=== PATIENT | female | born 1960 | race Caucasian/White ===

== ENCOUNTER → 2017-04-16 | Outpatient (CLI) | payer OTHER ==
--- NOTE | 2017-04-18 10:01 | MM ---
Reason for exam: screening (asymptomatic). Last mammogram was performed 1 year and 2 months ago. History: Patient is postmenopausal. Benign stereotactic core biopsy of the right breast, September 03, 1998. Core biopsy of the right breast. Took hormonal contraceptives beginning at age 43. Physical Findings: A clinical breast exam by your physician is recommended on an annual basis and results should be correlated with mammographic findings. MG Screening Mammo w CAD Bilateral CC and MLO view(s) were taken. Prior study comparison: February 14, 2016, bilateral MG screening mammo w CAD. January 07, 2015, bilateral MG screening mammo w CAD. There are scattered fibroglandular densities. Previous mammotome biopsy in the right breast. No significant changes when compared with prior studies. ASSESSMENT: Negative, BI-RAD 1 RECOMMENDATION: Routine screening mammogram of both breasts in 1 year.
== END ==
LOC: RADMAMWWP 15:01
PROVIDERS: ATTEND Obstetrics & Gynecology
DX: Z12.31 Encounter for screening mammogram for malignant neoplasm of breast (principal)

== ENCOUNTER → 2018-05-07 | Outpatient (CLI) | payer OTHER ==
--- NOTE | 2018-05-08 13:30 | MM ---
Reason for exam: screening (asymptomatic). Last mammogram was performed 1 year and 1 month ago. History: Patient is postmenopausal. Benign stereotactic core biopsy of the right breast, September 03, 1998. Core biopsy of the right breast. Took hormonal contraceptives beginning at age 43. Physical Findings: A clinical breast exam by your physician is recommended on an annual basis and results should be correlated with mammographic findings. MG Screening Mammo w CAD Bilateral CC and MLO view(s) were taken. Prior study comparison: April 16, 2017, bilateral MG screening mammo w CAD. February 14, 2016, bilateral MG screening mammo w CAD. There are scattered fibroglandular densities. No suspicious abnormality. Right biopsy marker noted. No significant changes when compared with prior studies. ASSESSMENT: Negative, BI-RAD 1 RECOMMENDATION: Routine screening mammogram of both breasts in 1 year.
== END | disposition home or self-care (01) ==
LOC: RADMAMWWP 14:38
PROVIDERS: ATTEND Obstetrics & Gynecology
DX: Z12.31 Encounter for screening mammogram for malignant neoplasm of breast (principal)
CPT/HCPCS: 77067

== ENCOUNTER → 2019-05-08 | Outpatient (CLI) | payer OTHER ==
--- NOTE | 2019-05-09 11:38 | MM ---
Reason for exam: screening (asymptomatic). Last mammogram was performed 1 year ago. History: Patient is postmenopausal. Benign stereotactic core biopsy of the right breast, September 03, 1998. Core biopsy of the right breast. Took hormonal contraceptives beginning at age 43. Physical Findings: A clinical breast exam by your physician is recommended on an annual basis and results should be correlated with mammographic findings. MG 3D Screening Mammo W/Cad Bilateral CC and MLO view(s) were taken. Prior study comparison: May 07, 2018, bilateral MG screening mammo w CAD. April 16, 2017, bilateral MG screening mammo w CAD. There are scattered fibroglandular densities. Previous mammotome biopsy in the left breast. No significant changes when compared with prior studies. ASSESSMENT: Benign, BI-RAD 2 RECOMMENDATION: Routine screening mammogram of both breasts in 1 year.
== END | disposition home or self-care (01) ==
LOC: RADMAMWWP 13:40
PROVIDERS: ATTEND Family Medicine
DX: Z12.31 Encounter for screening mammogram for malignant neoplasm of breast (principal)
CPT/HCPCS: 77063; 77067

== ENCOUNTER → 2020-05-19 | Outpatient (CLI) | payer BC ==
--- NOTE | 2020-05-24 11:34 | MM ---
Reason for exam: screening (asymptomatic). Last mammogram was performed 1 year ago. History: Patient is postmenopausal. Benign stereotactic core biopsy of the right breast, September 03, 1998. Core biopsy of the right breast. Took hormonal contraceptives beginning at age 43. Physical Findings: A clinical breast exam by your physician is recommended on an annual basis and results should be correlated with mammographic findings. MG Screening Mammo w CAD Bilateral CC and MLO view(s) were taken. Prior study comparison: May 08, 2019, bilateral MG 3d screening mammo w/cad. May 07, 2018, bilateral MG screening mammo w CAD. There are scattered fibroglandular densities. Previous mammotome biopsy in the right breast. No significant changes when compared with prior studies. ASSESSMENT: Benign, BI-RAD 2 RECOMMENDATION: Routine screening mammogram of both breasts in 1 year.
== END | disposition home or self-care (01) ==
LOC: RADMAMWWP 13:15
PROVIDERS: ATTEND Obstetrics & Gynecology
DX: Z12.31 Encounter for screening mammogram for malignant neoplasm of breast (principal)
CPT/HCPCS: 77067

== ENCOUNTER 2021-06-09 14:39 | Observation (INO) | payer BC ==
[2021-06-09] MEDS ORDERED: SODIUM CHLORIDE 0.9% 1,000 ML IV STA (15:26)
[2021-06-09] MEDS ORDERED: ONDANSETRON 4 MG/2 ML VIAL IVP STA ×2 (15:26→17:34)
[2021-06-09] MEDS ORDERED: MORPHINE SULFATE 4 MG/ML SYRINGE IV STA (15:26)
[2021-06-09 16:00] LABS: Basophils % (A) 0 %; Eosinophils % (A) 0 %; HCT 38.1 % (34.0-46.0); HGB 12.7 gm/dL (11.4-16.0); Lymphocytes # (A) 0.4 k/uL (1.0-4.8); Lymphocytes % (A) 2 %; MCH 30.6 pg (25.0-35.0); MCHC 33.4 g/dL (31.0-37.0); MCV 91.6 fL (80.0-100.0); Monocytes # (A) 0.3 k/uL (0-1.0); Monocytes % (A) 1 %; Neutrophils % (A) 97 %; Platelet Count 255 k/uL (150-450); RBC 4.16 m/uL (3.80-5.40); RDW 13.3 % (11.5-15.5); WBC 19.7 k/uL (3.8-10.6)
[2021-06-09 16:09] LABS: ALT 21 U/L (4-34); AST 33 U/L (14-36); African American GFR (CKD) >90 (>60 ml/min/1.73 sqM); Alkaline Phosphatase 72 U/L (38-126); Anion Gap 13 mmol/L; Blood Urea Nitrogen 16 mg/dL (7-17); Calcium 8.8 mg/dL (8.4-10.2); Carbon Dioxide 17 mmol/L (22-30); Chloride 106 mmol/L (98-107); Glucose 164 mg/dL (74-99); Lipase 57 U/L (23-300); Non-African American GFR(CKD) >90 (>60 ml/min/1.73 sqM); Sodium 136 mmol/L (137-145); Total Bilirubin 0.9 mg/dL (0.2-1.3); Total Protein 7.5 g/dL (6.3-8.2)
--- NOTE | 2021-06-09 16:55 | ED ---
Medical Decision Making - Medical Decision Making Patient care sign out to me by physician minister assistant, Chel Carter. Briefly, patient is 52-year-old femalepast medical history presents with multiple syncopal episodes today. She's been having infectious symptoms recently. Patient is covered vaccinated and boosted. She had approximately 4 sacral episodes today. Patient was evaluated at the bedside found to be stable medical condition. She denies any cardiac history. EKGs benign. Laboratory evaluation shows leukocytosis 19.7, neutrophils 1. Metabolic panel shows mild Acidosis with a bicarb of 17 and gap of 13. Rest of metabolic panel is negative. 4 panel viral PCR is negative for COVID-19, influenza and respiratory syncytial virus. Patient has a white count of 19.7. She does not have any obvious localizing symptoms. No previous labs to determine if patient's leukocytosis is chronic. Patient was reevaluated at bedside at 7:28 PM. Physical examination is benign. She has a benign abdomen with no palpatory tenderness, negative Kernig's, negative Brudzinski's, negative Lhermitte's, posterior oropharynx is u nremarkable, patient has no suprapubic pain or left lower quadrant abdominal pain. No rashes. States she does have a mild headache but denies any runny nose and nasal congestion. Urinalysis is unremarkable. Pending urine cultures, pending blood cultures. At this point is not entirely obvious sweats causing patient's leukocytosis or syncope. Patient does not have any palpatory lymphadenopathy. Disposition after discussed. Patient is agreeable with observation admission for further medical monitoring and repeat labs in the morning. Patient will be admitted to [facility]. - Lab Data Result diagrams: 06/09/21 15:53 06/09/21 15:53 Lab Results 06/09/21 06/09/21 06/09/21 Range/Units 15:53 15:53 15:53 WBC 19.7 H (3.8-10.6) k/uL RBC 4.16 (3.80-5.40) m/uL Hgb 12.7 (11.4-16.0) gm/dL Hct 38.1 (34.0-46.0) % MCV 91.6 (80.0-100.0) fL MCH 30.6 (25.0-35.0) pg MCHC 33.4 (31.0-37.0) g/dL RDW 13.3 (11.5-15.5) % Plt Count 255 (150-450) k/uL MPV 7.0 Neutrophils % 97 % Lymphocytes % 2 % Monocytes % 1 % Eosinophils % 0 % Basophils % 0 % Neutrophils # 19.0 H (1.3-7.7) k/uL Lymphocytes # 0.4 L (1.0-4.8) k/uL Monocytes # 0.3 (0-1.0) k/uL Eosinophils # 0.0 (0-0.7) k/uL Basophils # 0.0 (0-0.2) k/uL Sodium 136 L (137-145) mmol/L Potassium 4.0 (3.5-5.1) mmol/L Chloride 106 (98-107) mmol/L Carbon Dioxide 17 L (22-30) mmol/L Anion Gap 13 mmol/L BUN 16 (7-17) mg/dL Creatinine 0.54 (0.52-1.04) mg/dL Est GFR (CKD-EPI)AfAm >90 (>60 ml/min/1.73 sqM) Est GFR (CKD-EPI)NonAf >90 (>60 ml/min/1.73 sqM) Glucose 164 H (74-99) mg/dL Calcium 8.8 (8.4-10.2) mg/dL Total Bilirubin 0.9 (0.2-1.3) mg/dL AST 33 (14-36) U/L ALT 21 (4-34) U/L Alkaline Phosphatase 72 (38-126) U/L Troponin I <0.012 (0.000-0.034) ng/mL Total Protein 7.5 (6.3-8.2) g/dL Albumin 4.0 (3.5-5.0) g/dL Lipase 57 (23-300) U/L Urine Color Urine Appearance (Clear) Urine pH (5.0-8.0) Ur Specific [place] (1.001-1.035) Urine Protein (Negative) Urine Glucose (UA) (Negative) Urine Ketones (Negative) Urine Blood (Negative) Urine Nitrite (Negative) Urine Bilirubin (Negative) Urine Urobilinogen (<2.0) mg/dL Ur Leukocyte Esterase (Negative) Coronavirus (PCR) (Not Detectd) Influenza Type A RNA (Not Detectd) Influenza Type B (PCR) (Not Detectd) RSV (PCR) (Negative) 06/09/21 06/09/21 06/09/21 Range/Units 15:53 15:53 18:42 WBC (3.8-10.6) k/uL RBC (3.80-5.40) m/uL Hgb (11.4-16.0) gm/dL Hct (34.0-46.0) % MCV (80.0-100.0) fL MCH (25.0-35.0) pg MCHC (31.0-37.0) g/dL RDW (11.5-15.5) % Plt Count (150-450) k/uL MPV Neutrophils % % Lymphocytes % % Monocytes % % Eosinophils % % Basophils % % Neutrophils # (1.3-7.7) k/uL Lymphocytes # (1.0-4.8) k/uL Monocytes # (0-1.0) k/uL Eosinophils # (0-0.7) k/uL Basophils # (0-0.2) k/uL Sodium (137-145) mmol/L Potassium (3.5-5.1) mmol/L Chloride (98-107) mmol/L Carbon Dioxide (22-30) mmol/L Anion Gap mmol/L BUN (7-17) mg/dL Creatinine (0.52-1.04) mg/dL Est GFR (CKD-EPI)AfAm (>60 ml/min/1.73 sqM) Est GFR (CKD-EPI)NonAf (>60 ml/min/1.73 sqM) Glucose (74-99) mg/dL Calcium (8.4-10.2) mg/dL Total Bilirubin (0.2-1.3) mg/dL AST (14-36) U/L ALT (4-34) U/L Alkaline Phosphatase (38-126) U/L Troponin I (0.000-0.034) ng/mL Total Protein (6.3-8.2) g/dL Albumin (3.5-5.0) g/dL Lipase (23-300) U/L Urine Color Yellow Urine Appearance Clear (Clear) Urine pH 7.0 (5.0-8.0) Ur Specific [place] 1.022 (1.001-1.035) Urine Protein Trace H (Negative) Urine Glucose (UA) Negative (Negative) Urine Ketones Negative (Negative) Urine Blood Negative (Negative) Urine Nitrite Negative (Negative) Urine Bilirubin Negative (Negative) Urine Urobilinogen <2.0 (<2.0) mg/dL Ur Leukocyte Esterase Negative (Negative) Coronavirus (PCR) Not Detected (Not Detectd) Influenza Type A RNA Not Detected (Not Detectd) Influenza Type B (PCR) Not Detected (Not Detectd) RSV (PCR) Negative (Negative) Disposition Clinical Impression: Leukocytosis, Syncope Disposition: ADMITTED IP TO THIS HOSP Condition: Fair Referrals: Maxx Srivastava MD [Primary Care Provider] - 1-2 days
[2021-06-09] MEDS ORDERED: SODIUM CHLORIDE 0.9% 500 ML 500 ML IV STA (18:09)
[2021-06-09] MEDS ORDERED: ACETAMINOPHEN TAB 500 MG TAB PO STA (18:43)
[2021-06-09 18:53] LABS: Appearance,Urine Clear (Clear); Bilirubin,Urine Negative (Negative); Blood,Urine Negative (Negative); Color,Urine Yellow; Glucose,Urine (UA) Negative (Negative); Ketones,Urine Negative (Negative); Leukocyte Esterase,Urine Negative (Negative); Nitrite,Urine Negative (Negative); Protein,Urine Trace (Negative); Specific Gravity,Urine 1.022 (1.001-1.035); Urobilinogen,Urine <2.0 mg/dL (<2.0)
[2021-06-09] MEDS ORDERED: ONDANSETRON 4 MG/2 ML VIAL IVP PRN (19:26)
[2021-06-09] MEDS ORDERED: ACETAMINOPHEN TAB 325 MG TAB PO PRN (19:26)
[2021-06-09] MEDS ORDERED: NALOXONE 0.4 MG/ML 1 ML VIAL IV PRN (19:26)
--- NOTE | 2021-06-09 20:34 | CT ---
EXAMINATION TYPE: CT brain wo con CT DLP: 1055.4 mGycm, Automated exposure control for dose reduction was used. DATE OF EXAM: 06/09/2021 7:58 PM COMPARISON: None. CLINICAL INDICATION:Female, 60 years old with history of headache, syncope, passed out TECHNIQUE: Brain: Multiple axial CT images of the brain were obtained without IV contrast. FINDINGS: Brain: Extra-axial spaces: No abnormal extra-axial fluid collections. Ventricular system: Within normal limits Cerebral parenchyma: No acute intraparenchymal hemorrhage or mass effect. The henderson-white junction is well differentiated. Cerebellum: Unremarkable. Mass effect: No evidence of midline shift. Intracranial vasculature: Atherosclerotic calcifications of the intracranial vessels. Soft tissues: Normal. Calvarium/osseous structures: No depressed skull fracture. Paranasal sinuses and mastoid air cells: Clear. Visualized orbits: Orbital contents are intact. IMPRESSION: No acute intracranial process.
[2021-06-09] MEDS: SODIUM CHLORIDE 0.9% 1,000 ML IV SCH (22:07)
--- NOTE | 2021-06-09 23:27 | P.HPIM ---
History of Present Illness H&P Date: 06/09/21 The patient is a 60 yo F with no known PMH who presented to the emergency room due to syncope at home. The patient reports that she woke up at 4 AM this morning with sudden onset of nausea with 1 episode of vomiting and loose bowel movement. She then went back to bed and subsequently woke up again at 6 AM, at which time as she was walking to the restroom, she became lightheaded and lost consciousness, falling to the ground hitting her carpeted floor. The witnessed the episode, and noticed that she appeared to be stumbling and had lost consciousness for roughly 10 seconds, with no post ictal confusion, aching movements, urinary incontinence, or tongue biting. The patient subsequently had another episode of vomiting and then went back to sleep. She woke up again a few hours later and had another episode of vomiting and as she tried to get up off the bed, she again lost consciousness, roughly lasting for 10-15 seconds as per the . No post ictal confusion, shaking movements, or other seizure- like activity was noted in any of the episodes. The patient does not recall any prodrome of chest discomfort, shortness of breath, or palpitations. She reports a mild headache but denied fevers, chills, chest pain, cough. Denied abdominal pain, urinary complaints. Reports eating at home for dinner the night prior with no recent sick contacts or travel. Denied neck pain, visual disturbances, weakness, numbness, tingling. She underwent an extensive evaluation in the e mergency room with a CT brain without contrast unremarkable. EKG revealed normal sinus rhythm at [address]/T-wave changes noted as reviewed by me. Laboratory evaluation was remarkable for leukocytosis at 19.7, sodium 136, CO2 17, and glucose 164 with troponin less than 0.012. Review of systems: Pertinent positives and negatives as discussed in HPI, a complete review of systems was performed and all other systems are negative. Physical examination: General: non toxic, no distress, appears at stated age, normal weight Derm: no unusual rashes/lesions no unusual ecchymoses, warm, dry Head: atraumatic, normocephalic, symmetric Eyes: EOMI, no lid lag, anicteric sclera, pupils equal round reactive to light ENT: Nose and ears atraumatic, no thrush, no pharyngeal erythema Neck: No thyromegaly, no cervical lymphadenopathy, trachea midline, supple Mouth: no lip lesion, mucus membranes moist Cardiovascular: S1S2 reg, no murmur, positive posterior tibial pulse bilateral, no edema, capillary refill less than 2 seconds Lungs: CTA bilateral, no rhonchi, no rales , no accessory muscle use Abdominal: soft, nontender to palpation, no guarding, no appreciable organomegaly, normal bowel sounds Ext: no gross muscle atrophy, muscle strength 5 out of 5 in all 4 extremities grossly, no contractures, Neuro: CN II-XI grossly intact, light touch intact all 4 extremities, finger to nose within normal limits, Kernig's and Brudzinski's negative Psych: Alert, oriented, appropriate affect Assessment/plan Syncope, unclear etiology, suspected vasovagal in setting of vomiting and diarrhea -Orthostatics unremarkable -Continue with IV fluids -Cardiac monitoring -Fall precautions -Echocardiogram -Antiemetics Leukocytosis -No clear infectious etiology noted -Follow up blood cultures -Monitor CBC Hyper glycemia -Check A1c DVT prophylaxis -Heparin The patient is admitted with an anticipated less than 2 midnight stay for evaluation of syncope CODE STATUS: Full Code Discussed with: Patient Anticipated discharge date: in am Anticipated discharge place: Home Past Medical History Additional Past Medical History / Comment(s): Vertigo History of Any Multi-Drug Resistant Organisms: None Reported Past Surgical History: No Surgical Hx Reported Past Psychological History: No Psychological Hx Reported Smoking Status: Never smoker Past Alcohol Use History: Occasional Past Drug Use History: None Reported - Past Family History Father Family Medical History: Hyperlipidemia Medications and Allergies Home Medications Medication Instructions Recorded Confirmed Type Cholecalciferol [Vitamin D3 (25 25 mcg PO DAILY 06/09/21 06/09/21 History Mcg = 1000 Iu)] Meclizine [Antivert] 25 mg PO BID PRN 06/09/21 06/09/21 History Multivitamin/Iron/Folic Acid 1 tab PO DAILY 06/09/21 06/09/21 History [Centrum Women Tablet] Allergies Allergy/AdvReac Type Severity Reaction Status Date / Time amoxicillin Allergy Rash/Hives Verified 06/09/21 16:52 codeine AdvReac Confusion Verified 06/09/21 16:52 Physical Exam Vitals: Vital Signs Temp Pulse Pulse Pulse Pulse Resp BP 06/09/21 19:24 98.4 F 69 16 103/56 06/09/21 18:43 67 77 68 06/09/21 14:40 97.9 F 73 16 106/48 BP BP BP Pulse Ox 06/09/21 19:24 98 06/09/21 18:43 107/54 103/56 109/53 06/09/21 14:40 98 Intake and Output 06/09/21 06/09/21 06/09/21 06:59 14:59 22:59 Other: Weight 68.039 kg Results CBC & Chem 7: 06/09/21 15:53 06/09/21 15:53 Labs: Abnormal Lab Results - Last 24 Hours (Table) 06/09/21 06/09/21 06/09/21 Range/Units 15:53 15:53 18:42 WBC 19.7 H (3.8-10.6) k/uL Neutrophils # 19.0 H (1.3-7.7) k/uL Lymphocytes # 0.4 L (1.0-4.8) k/uL Sodium 136 L (137-145) mmol/L Carbon Dioxide 17 L (22-30) mmol/L Glucose 164 H (74-99) mg/dL Urine Protein Trace H (Negative)
[2021-06-10] MEDS: HEPARIN SODIUM,PORCINE/PF 5,000 UNIT/0.5 ML SYRINGE SQ SCH ×4 (03:22→20:30)
[2021-06-10] MEDS: SODIUM CHLORIDE 0.9% 1,000 ML IV SCH ×2 (08:50→20:24)
--- NOTE | 2021-06-10 11:00 | ECHOF ---
Referral Reason:syncope MEASUREMENTS -------- HEIGHT: 165.1 cm WEIGHT: 68.0 kg BP: 120/66 RVIDd: 2.6 cm (< 3.3) IVSd: 1.3 cm (0.6 - 1.1) LVIDd: 4.5 cm (3.9 - 5.3) LVPWd: 1.1 cm (0.6 - 1.1) IVSs: 1.8 cm LVIDs: 2.6 cm LVPWs: 1.8 cm LAESV Index (A-L): 39.83 ml/m Ao Diam: 3.2 cm (2.0 - 3.7) AV Cusp: 2.5 cm (1.5 - 2.6) LA Diam: 4.1 cm (2.7 - 3.8) MV EXCURSION: 26.991 mm (> 18.000) MV EF SLOPE: 101 mm/s (70 - 150) EPSS: 0.3 cm MV E Bk: 1.20 m/s MV DecT: 255 ms MV A Bk: 0.73 m/s MV E/A Ratio: 1.63 AR PHT: 621 ms RAP: 15.00 mmHg RVSP: 34.59 mmHg FINDINGS -------- Sinus rhythm. This was a technically adequate study. The left ventricular size is normal. There is mild concentric left ventricular hypertrophy. Overa ll left ventricular systolic function is normal with, an EF between 55 - 60 %. The diastolic fillin g pattern is normal for the age of the patient {E/E'}. The right ventricle is normal in size. LA is moderately dilated 34-39 ml/m2 The right atrial size is normal. Interatrial and interventricular septum intact. Trace amount of aortic regurgitation. There is no evidence of aortic stenosis. [id number] mitral regurgitation is present. Mild tricuspid regurgitation present. There is borderline pulmonary artery hypertension. The righ t ventricular systolic pressure, as measured by Doppler, is 34.59mmHg. There is no pulmonic regurgitation present. The aortic root size is normal. The inferior vena cava is dilated with poor inspiratory collapse which is consistent with estimated r ight atrial pressure of 20 mmHg. Echo free space represents a pericardial fat pad. There is no pericardial effusion. CONCLUSIONS -------- 1. The left ventricular size is normal. 2. There is mild concentric left ventricular hypertrophy. 3. Overall left ventricular systolic function is normal with, an EF between 55 - 60 %. 4. The diastolic filling pattern is normal for the age of the patient {E/E'} 5. LA is moderately dilated 34-39 ml/m2 6. Trace amount of aortic regurgitation. 7. [id number] mitral regurgitation is present. 8. Mild tricuspid regurgitation present. 9. There is borderline pulmonary artery hypertension. 10. The right ventricular systolic pressure, as measured by Doppler, is 34.59mmHg. 11. The inferior vena cava is dilated with poor inspiratory collapse which is consistent with estimat ed right atrial pressure of 20 mmHg. RIBBON CUTTER: Anabella Kidd RDCS
[2021-06-10 11:06] LABS: HGB 11.1 g/dL (12.0-15.0); MCH 30.2 pg (27.0-32.0); MCHC 32.6 g/dL (32.0-37.0); MCV 92.6 fL (80.0-97.0); Mean Platelet Volume 9.7 fL (9.5-12.2); Platelet Count 223 X 10*3/uL (140-440); RBC 3.67 X 10*6/uL (4.10-5.20); RDW 13.3 % (11.5-14.5); WBC 9.77 X 10*3/uL (4.50-10.00)
--- NOTE | 2021-06-10 11:13 | P.PN ---
Subjective Progress Note Date: 06/10/21 Patient feels okay better Syncope, unclear etiology, Since the patient did have 3 episodes of syncope we will consult cardiology we'll monitor overnight -Orthostatics unremarkable -Continue with IV fluids -Cardiac monitoring -Fall precautions -Echocardiogram -Antiemetics Leukocytosis -Exact etiology not clear but since the patient does have vomiting and diarrhea Will treat for gastroenteritis and will continue to observe We'll also check computed tomography scan of the lungs to rule out PE -Follow up blood cultures -Monitor CBC Constitutional: No acute distress, conversant, pleasant Eyes: Anicteric sclerae, moist conjunctiva, no lid-lag PERRLA ENMT: NC/AT Oropharynx clear, no erythema, exudates Neck: Supple, FROM, no masses, or JVD No carotid bruits No thyromegaly Lungs: Clear to auscultation Clear to percussion Normal respiratory effort, no accessory muscle use Cardiovascular: Heart regular in rate and rhythm, No murmurs, gallops, or rubs No peripheral edema Abdominal: Soft Nontender, no guarding, rebound or rigidity Abdomen moving with respiration Normoactive bowel sounds No hepatomegaly, No splenomegaly No palpable mass No abdominal wall hernia noted Skin: Normal temperature, tone, texture, turgor No induration No subcutaneous nodules No rash, lesions No ulcers Extremities: No digital cyanosis No clubbing Pedal pulses intact and symmetrical Radial pulses intact and symmetrical Normal gait and station No calf tenderness Psychiatric:Alert and oriented to person, place and time Appropriate affect Intact judgement Neuro: Muscles Strength 5/5 in all 4 extremities Sensation to light touch grossly present throughout Cranial nerves II-XII grossly intact No focal sensory deficits Objective - Vital Signs Vital signs: Vital Signs Temp 98.1 F 06/10/21 07:00 Pulse 61 06/10/21 07:00 Resp 15 06/10/21 07:00 BP 123/66 06/10/21 07:00 Pulse Ox 98 06/10/21 07:00 Intake & Output 06/09/21 06/10/21 06/10/21 18:59 06:59 18:59 Weight 68.039 kg 68.039 kg Other: Voiding Method Toilet Toilet # Voids 2 - Labs CBC & Chem 7: 06/10/21 07:28 06/09/21 15:53 Labs: Abnormal Lab Results - Last 24 Hours (Table) 06/09/21 06/09/21 06/09/21 Range/Units 15:53 15:53 18:42 WBC 19.7 H (3.8-10.6) k/uL RBC (4.10-5.20) X 10*6/uL Hgb (12.0-15.0) g/dL Hct (37.2-46.3) % Neutrophils # 19.0 H (1.3-7.7) k/uL Lymphocytes # 0.4 L (1.0-4.8) k/uL Sodium 136 L (137-145) mmol/L Carbon Dioxide 17 L (22-30) mmol/L Glucose 164 H (74-99) mg/dL Urine Protein Trace H (Negative) 06/10/21 Range/Units 07:28 WBC (3.8-10.6) k/uL RBC 3.67 L (4.10-5.20) X 10*6/uL Hgb 11.1 L (12.0-15.0) g/dL Hct 34.0 L (37.2-46.3) % Neutrophils # (1.3-7.7) k/uL Lymphocytes # (1.0-4.8) k/uL Sodium (137-145) mmol/L Carbon Dioxide (22-30) mmol/L Glucose (74-99) mg/dL Urine Protein (Negative)
[2021-06-10 11:15] LABS: African American GFR (CKD) 116.4 (60.0-200.0); Albumin/Globulin Ratio 1.54 (1.60-3.17); Anion Gap 11.6 mmol/L (10.00-18.00); Blood Urea Nitrogen 10.2 mg/dL (9.0-27.0); Calcium 8.8 mg/dL (8.7-10.3); Carbon Dioxide 23.4 mmol/L (20.0-27.5); Globulin 2.6 g/dL (1.6-3.3); Non-African American GFR(CKD) 100.5 (60.0-200.0); Potassium 3.9 mmol/L (3.5-5.5); Total Bilirubin 0.5 mg/dL (0.30-1.20); Total Protein 6.6 g/dL (6.2-8.2)
[2021-06-10] MEDS ORDERED: metroNIDAZOLE-NS PMX 500 MG in SALINE 1 100ML.BAG IVPB SCH (12:00)
[2021-06-10] MEDS ORDERED: LEVOFLOXACIN 500MG-D5W PMX 500 MG in DEXTROSE/WATER 1 100ML.BAG IVPB SCH (12:00)
--- NOTE | 2021-06-10 13:00 | P.CRDCN ---
History of Present Illness Consult date: 06/10/21 History of present illness: HISTORY OF PRESENT ILLNESS: This is a 60-year-old female with a past medical history significant for vertigo. 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 She did have a stress echocardiogram in 2013 which was negative for ischemia. We have been asked to see the patient in consultation for syncope. Patient examined at the bedside. Patient states yesterday she was feeling un well and was having multiple episodes of vomiting. Patient states she walked to the bathroom and had an episode of vomiting and upon walking back she had a syncopal episode. She states her witnessed this. She denies having any injuries. She states that she walked back to bed and laid back down. She states that she then sat on the side of the bed and thought she was going to get sick and had another syncopal episode. She was found to have leukocytosis on admission with a WBC of 19. The patient has not had any further episodes of syncope since coming to the hospital. She is feeling much better today and has not had any further episodes of nausea or vomiting. She is receiving IV fluids. EKG reveals sinus mechanism with no signs of acute ischemia Laboratory data: WBC 19.7. Repeat 9.77. Hemoglobin 11.1. Platelet count 223. Sodium 142. Potassium 3.9. BUN 10. Creatinine 0.6. Troponin negative 3. Current home cardiac medications include none Echo cardiac room completed revealing ejection fraction 55-60%, trace amount of aortic regurgitation, [id number] mitral regurgitation, mild tricuspid regurgitation, and borderline pulmonary artery hypertension REVIEW OF SYSTEMS: At the time of my exam: CONSTITUTIONAL: Denies fever or chills. HEENT: Denies blurred vision, vision changes, or eye pain. Denies hemoptysis CARDIOVASCULAR: Denies chest pain. Denies orthopnea. Denies PND. Denies palpitations RESPIRATORY: Denies shortness of breath. GASTROINTESTINAL: Denies abdominal pain. Denies nausea or vomiting. HEMATOLOGIC: Denies bleeding disorders. GENITOURINARY: Denies any blood in urine. SKIN: Denies pruitis. Denies rash. PHYSICAL EXAM: VITAL SIGNS: Reviewed. GENERAL: Well-developed in no acute distress. HEENT: Head is normocephalic. Pupils are equal, round. Sclerae anicteric. Mucous membranes of the mouth are moist. Neck supple. No JVD or thyromegaly LUNGS: Respirations even and unlabored. Lungs essentially clear to auscultation bilaterally. HEART: Regular rate and rhythm. S1 and S2 heard. ABDOMEN: Soft. Nondistended. Nontender. EXTREMITIES: Normal range of motion. No clubbing or cyanosis. Peripheral pulses intact. No lower extremity edema NEUROLOGIC: Awake and alert. Oriented x 3. ASSESSMENT: Vasovagal syncope Nausea and vomiting Diarrhea Leukocytosis Vertigo PLAN: 2D echo obtained and reviewed Patients syncope likely related to vasovagal episode No further cardiac workup at this time We will sign off. Please reconsult if needed Nurse practitioner note has been reviewed by physician. Signing provider agrees with the documented findings, assessment, and plan of care. Past Medical History Additional Past Medical History / Comment(s): Vertigo History of Any Multi-Drug Resistant Organisms: None Reported Past Surgical History: No Surgical Hx Reported Past Psychological History: No Psychological Hx Reported Smoking Status: Never smoker Past Alcohol Use History: Occasional Past Drug Use History: None Reported - Past Family History Father Family Medical History: Hyperlipidemia Medications and Allergies Home Medications Medication Instructions Recorded Confirmed Type Cholecalciferol [Vitamin D3 (25 25 mcg PO DAILY 06/09/21 06/09/21 History Mcg = 1000 Iu)] Meclizine [Antivert] 25 mg PO BID PRN 06/09/21 06/09/21 History Multivitamin/Iron/Folic Acid 1 tab PO DAILY 06/09/21 06/09/21 History [Centrum Women Tablet] Allergies Allergy/AdvReac Type Severity Reaction Status Date / Time amoxicillin Allergy Rash/Hives Verified 06/09/21 16:52 codeine AdvReac Confusion Verified 06/09/21 16:52 Physical Exam Vitals: Vital Signs Temp Pulse Pulse Pulse Pulse Pulse Resp 06/10/21 07:00 98.1 F 61 15 06/10/21 03:32 98.0 F 61 14 06/09/21 22:40 98.1 F 60 16 06/09/21 19:24 98.4 F 69 16 06/09/21 18:43 67 77 68 06/09/21 14:40 97.9 F 73 16 BP BP BP BP BP Pulse Ox 06/10/21 07:00 123/66 98 06/10/21 03:32 120/66 100 06/09/21 22:40 104/58 98 06/09/21 19:24 103/56 98 06/09/21 18:43 107/54 103/56 109/53 06/09/21 14:40 106/48 98 Intake and Output 06/09/21 06/10/21 06/10/21 22:59 06:59 14:59 Other: Voiding Method Toilet Toilet # Voids 1 2 Weight 68.039 kg Results 06/10/21 07:28 06/10/21 07:28 Cardiac Enzymes 06/09/21 06/09/21 06/10/21 Range/Units 15:53 15:53 07:28 AST 33 19 (14-36) U/L Troponin I <0.012 (0.000-0.034) ng/mL CBC 06/09/21 06/10/21 Range/Units 15:53 07:28 WBC 19.7 H 9.77 (3.8-10.6) k/uL RBC 4.16 3.67 L (3.80-5.40) m/uL Hgb 12.7 11.1 L (11.4-16.0) gm/dL Hct 38.1 34.0 L (34.0-46.0) % Plt Count 255 223 (150-450) k/uL Comprehensive Metabolic Panel 06/09/21 06/10/21 Range/Units 15:53 07:28 Sodium 136 L 142 (137-145) mmol/L Potassium 4.0 3.9 (3.5-5.1) mmol/L Chloride 106 107 (98-107) mmol/L Carbon Dioxide 17 L 23.4 (22-30) mmol/L BUN 16 10.2 (7-17) mg/dL Creatinine 0.54 0.6 (0.52-1.04) mg/dL Glucose 164 H 90 (74-99) mg/dL Calcium 8.8 8.8 (8.4-10.2) mg/dL AST 33 19 (14-36) U/L ALT 21 17 (4-34) U/L Alkaline Phosphatase 72 71 (38-126) U/L Total Protein 7.5 6.6 (6.3-8.2) g/dL Albumin 4.0 4.0 (3.5-5.0) g/dL Current Medications Generic Name Dose Route Start Last Admin Trade Name Freq PRN Reason Stop Dose Admin Acetaminophen 650 mg 06/09/21 19:26 Acetaminophen Tab 325 Mg Tab PO Q6HR PRN Mild Pain or Fever > 100.5 Heparin Sodium (Porcine) 5,000 unit 06/10/21 00:00 06/10/21 08:50 Heparin Sodium,Porcine/Pf 5,000 Unit/0.5 Ml Syringe SQ 5,000 unit Q8HR PRAVEEN Administration Sodium Chloride 1,000 mls @ 75 mls/hr 06/09/21 19:30 06/10/21 08:50 Saline 0.9% IV 75 mls/hr .[id number] PRAVEEN Administration Levofloxacin 500 mg/ IV 100 mls @ 100 mls/hr 06/10/21 12:00 Solution IVPB Q24H PRAVEEN Metronidazole 500 mg/ IV 100 mls @ 100 mls/hr 06/10/21 12:00 Solution IVPB Q8H PRAVEEN Naloxone HCl 0.2 mg 06/09/21 19:26 Naloxone 0.4 Mg/Ml 1 Ml Vial IV Q2M PRN Opioid Reversal Ondansetron HCl 4 mg 06/09/21 19:26 Ondansetron 4 Mg/2 Ml Vial IVP Q8HR PRN Nausea And Vomiting Intake and Output 06/09/21 06/10/21 06/10/21 22:59 06:59 14:59 Other: Voiding Method Toilet Toilet # Voids 1 2 Weight 68.039 kg 06/10/21 07:28 06/10/21 07:28
--- NOTE | 2021-06-10 14:40 | CT ---
EXAMINATION TYPE: CT chest angio for PE DATE OF EXAM: 06/10/2021 COMPARISON: NONE HISTORY: Syncope and weakness. CT DLP: 441 mGycm. Automated Exposure Control for Dose Reduction was Utilized. CONTRAST: CTA scan of the thorax is performed with IV Contrast, patient injected with 100 mL of Isovue 370, pul monary embolism protocol. MIP Images are created on CT scanner and reviewed. FINDINGS: LUNGS: Mild bibasilar linear scarring and/or atelectasis. No suspicious focal consolidation. There is no pleural effusion or pneumothorax seen bilaterally. The tracheobronchial tree is patent. MEDIASTINUM: There is suboptimal bolus but there is no convincing CT evidence for acute pulmonary emb olism. Equal contrast in the aorta is identified without aneurysm or dissection. Bovine type arch is seen which is normal variant. There are no greater than 1 cm hilar or mediastinal lymph nodes. No c ardiomegaly or pericardial effusion is seen. Somewhat small thyroid gland. OTHER: Benign 2.0 cm thin-walled cyst in the left hepatic lobe anteriorly on axial image 140. IMPRESSION: Suboptimal study without acute pulmonary embolism. No suspicious acute pulmonary process.
[2021-06-11] MEDS: HEPARIN SODIUM,PORCINE/PF 5,000 UNIT/0.5 ML SYRINGE SQ SCH (07:55)
[2021-06-11 08:15] VITALS: BP 119/68; PULSE 60; RESP 17; TEMP 98
--- NOTE | 2021-06-11 08:55 | P.DS ---
Providers Date of admission: 06/09/21 19:26 Expected date of discharge: 06/11/21 Attending physician: Pablito Canales MD Primary care physician: Maxx Alvarez [facility] Course: 60-year-old female admitted to the hospital with nausea vomiting and diarrhea and syncopal episode which was thought due to vasovagal cardiogenic as been consulted no further test is needed and patient feels okay today wants to go home tolerating diet no chest pain no shortness of breath Constitutional: No acute distress, conversant, pleasant Eyes: Anicteric sclerae, moist conjunctiva, no lid-lag PERRLA ENMT: NC/AT Oropharynx clear, no erythema, exudates Neck: Supple, FROM, no masses, or JVD No carotid bruits No thyromegaly Lungs: Clear to auscultation Clear to percussion Normal respiratory effort, no accessory muscle use Cardiovascular: Heart regular in rate and rhythm, No murmurs, gallops, or rubs No peripheral edema Abdominal: Soft Nontender, no guarding, rebound or rigidity Abdomen moving with respiration Normoactive bowel sounds No hepatomegaly, No splenomegaly No palpable mass No abdominal wall hernia noted Skin: Normal temperature, tone, texture, turgor No induration No subcutaneous nodules No rash, lesions No ulcers Extremities: No digital cyanosis No clubbing Pedal pulses intact and symmetrical Radial pulses intact and symmetrical Normal gait and station No calf tenderness Psychiatric:Alert and oriented to person, place and time Appropriate affect Intact judgement Neuro: Muscles Strength 5/5 in all 4 extremities Sensation to light touch grossly present throughout Cranial nerves II-XII grossly intact No focal sensory deficits Discharge plan Gastroenteritis clinically resolved Syncopal episode likely vasovagal cardiology cleared the patient to be discharged home to follow-up with primary care physician Patient Condition at Discharge: Fair Plan - Discharge Summary Discharge Rx Participant: No New Discharge Prescriptions: No Action Multivitamin/Iron/Folic Acid [Centrum Women Tablet] 1 tab PO DAILY Meclizine [Antivert] 25 mg PO BID PRN PRN Reason: Vertigo Cholecalciferol [Vitamin D3 (25 Mcg = 1000 Iu)] 25 mcg PO DAILY Discharge Medication List Cholecalciferol [Vitamin D3 (25 Mcg = 1000 Iu)] 25 mcg PO DAILY 06/09/21 [History] Meclizine [Antivert] 25 mg PO BID PRN 06/09/21 [History] Multivitamin/Iron/Folic Acid [Centrum Women Tablet] 1 tab PO DAILY 06/09/21 [History] Follow up Appointment(s)/Referral(s): Maxx Srivastava MD [Primary Care Provider] - 1-2 days Discharge Disposition: HOME SELF-CARE
[2021-06-11 11:38] LABS: Basophils # (A) 0.02 X 10*3/uL (0.00-0.10); Basophils % (A) 0.4 %; Eosinophils # (A) 0.07 X 10*3/uL (0.04-0.35); Eosinophils % (A) 1.3 %; HCT 33.5 % (37.2-46.3); HGB 10.7 g/dL (12.0-15.0); Lymphocytes # (A) 1.32 X 10*3/uL (0.90-5.00); MCH 30.1 pg (27.0-32.0); MCHC 31.9 g/dL (32.0-37.0); MCV 94.1 fL (80.0-97.0); Mean Platelet Volume 9.8 fL (9.5-12.2); Monocytes # (A) 0.42 X 10*3/uL (0.20-1.00); Neutrophils # (A) 3.42 X 10*3/uL (1.80-7.70); Neutrophils % (A) 64.9 %; Platelet Count 193 X 10*3/uL (140-440); RBC 3.56 X 10*6/uL (4.10-5.20); RDW 13.4 % (11.5-14.5); WBC 5.27 X 10*3/uL (4.50-10.00)
[2021-06-11 12:18] LABS: African American GFR (CKD) 116.4 (60.0-200.0); Albumin 3.8 g/dL (3.8-4.9); Albumin/Globulin Ratio 1.46 (1.60-3.17); Anion Gap 10.9 mmol/L (10.00-18.00); BUN/Creat Ratio 13.83 Ratio (12.00-20.00); Blood Urea Nitrogen 8.3 mg/dL (9.0-27.0); Calcium 8.8 mg/dL (8.7-10.3); Carbon Dioxide 23.1 mmol/L (20.0-27.5); Globulin 2.6 g/dL (1.6-3.3); Non-African American GFR(CKD) 100.5 (60.0-200.0); Potassium 3.9 mmol/L (3.5-5.5); Total Bilirubin 0.4 mg/dL (0.30-1.20); Total Protein 6.4 g/dL (6.2-8.2)
== END 2021-06-11 10:00 | disposition home or self-care (01) ==
LOC: EC 14:39 → UNDOADMIN 19:26 → 6NMEDSUR 19:26
PROVIDERS: ADMIT Internal Medicine; ATTEND Internal Medicine
DX: K52.9 Noninfective gastroenteritis and colitis, unspecified (principal); R55 Syncope and collapse; I08.1 Rheumatic disorders of both mitral and tricuspid valves; R51.9 Headache, unspecified; Z88.0 Allergy status to penicillin; Z88.5 Allergy status to narcotic agent; Z83.42 Family history of familial hypercholesterolemia
CPT/HCPCS: 99285; 96376; 96361 ×3; 96374; 96375; 96372 ×2; 36415; 93005; 93306; 80053 ×3; 83690; 84484; 85025 ×2; 85027; 81003; 87040; 87502; 83036; 87634; 87635; 70450; 71275; G0378 ×3; J2270; J2405; Q9967; J1644 ×2

== ENCOUNTER → 2021-06-17 | Outpatient (CLI) | payer BC ==
--- NOTE | 2021-06-20 11:11 | MM ---
Reason for exam: screening (asymptomatic). Last mammogram was performed 1 year and 1 month ago. History: Patient is postmenopausal. Benign stereotactic core biopsy of the right breast, September 03, 1998. Core biopsy of the right breast. Took hormonal contraceptives beginning at age 43. Physical Findings: A clinical breast exam by your physician is recommended on an annual basis and results should be correlated with mammographic findings. MG 3D Screening Mammo W/Cad Bilateral CC and MLO view(s) were taken. Prior study comparison: May 19, 2020, bilateral MG screening mammo w CAD. May 08, 2019, bilateral MG 3d screening mammo w/cad. There are scattered fibroglandular densities. Previous mammotome biopsy in the right breast. No significant changes when compared with prior studies. ASSESSMENT: Negative, BI-RAD 1 RECOMMENDATION: Routine screening mammogram of both breasts in 1 year.
== END | disposition home or self-care (01) ==
LOC: RADMAMWWP 13:40
PROVIDERS: ATTEND Obstetrics & Gynecology
DX: Z12.31 Encounter for screening mammogram for malignant neoplasm of breast (principal)
CPT/HCPCS: 77063; 77067

== ENCOUNTER 2022-04-18 08:02 | Emergency (ER) | payer BC ==
[2022-04-18 08:10] VITALS: RESP 18; TEMP 98.8
[2022-04-18] MEDS ORDERED: SODIUM CHLORIDE 0.9% 1,000 ML IV STA (08:37)
[2022-04-18] MEDS ORDERED: ONDANSETRON 4 MG/2 ML VIAL IVP STA (08:37)
[2022-04-18 08:47] VITALS: BP 101/54; PULSE 78
[2022-04-18 09:05] LABS: Basophils % (A) 0 %; Eosinophils # (A) 0.2 k/uL (0-0.7); Eosinophils % (A) 1 %; HCT 35.4 % (34.0-46.0); HGB 12.5 gm/dL (11.4-16.0); Lymphocytes # (A) 0.5 k/uL (1.0-4.8); Lymphocytes % (A) 3 %; MCH 31.1 pg (25.0-35.0); MCHC 35.3 g/dL (31.0-37.0); MCV 88.1 fL (80.0-100.0); Mean Platelet Volume 7.3; Monocytes # (A) 0.3 k/uL (0-1.0); Monocytes % (A) 2 %; Neutrophils # (A) 16.4 k/uL (1.3-7.7); Neutrophils % (A) 94 %; Platelet Count 269 k/uL (150-450); RBC 4.02 m/uL (3.80-5.40); RDW 12.8 % (11.5-15.5); WBC 17.4 k/uL (3.8-10.6)
[2022-04-18 09:28] LABS: ALT 16 U/L (4-34); AST 30 U/L (14-36); African American GFR (CKD) >90 (>60 ml/min/1.73 sqM); Albumin 3.5 g/dL (3.5-5.0); Alkaline Phosphatase 55 U/L (38-126); Amylase 60 U/L (30-110); Anion Gap 6 mmol/L; Blood Urea Nitrogen 12 mg/dL (7-17); Calcium 7.4 mg/dL (8.4-10.2); Carbon Dioxide 22 mmol/L (22-30); Chloride 111 mmol/L (98-107); Glucose 117 mg/dL (74-99); Lipase 61 U/L (23-300); Non-African American GFR(CKD) >90 (>60 ml/min/1.73 sqM); Sodium 139 mmol/L (137-145); Total Bilirubin 0.6 mg/dL (0.2-1.3); Total Protein 6.4 g/dL (6.3-8.2)
[2022-04-18 09:29] LABS: Potassium 3.8 mmol/L (3.5-5.1)
--- NOTE | 2022-04-18 10:13 | ED ---
General Adult HPI - General Chief complaint: Nausea/Vomiting/Diarrhea Stated complaint: nausea, vomiting Time Seen by Provider: 04/18/22 08:05 Source: patient, EMS, RN notes reviewed, old records reviewed Mode of arrival: EMS Limitations: no limitations - History of Present Illness Initial comments: This is a 61-year-old female presents emergency Department complaining that she became ill nauseous this morning and vomited once. Patient states after she vomited she didn't pass out for a few seconds. According to the this happen once before in May and they never found a reason they diagnosed her with vasovagal syncope. Patient denies any chest pain difficulty breathing shortest breath per patient denies any fever chills or cough per patient denies any diarrhea per patient denies any abdominal pain patient denies any back pain. Patient denies dysuria hematuria urinary frequency. - Related Data Home Medications Medication Instructions Recorded Confirmed Cholecalciferol [Vitamin D3 (25 25 mcg PO DAILY 06/09/21 04/18/22 Mcg = 1000 Iu)] Meclizine [Antivert] 25 mg PO BID PRN 06/09/21 04/18/22 Multivitamin/Iron/Folic Acid 1 tab PO DAILY 06/09/21 04/18/22 [Centrum Women Tablet] Allergies Allergy/AdvReac Type Severity Reaction Status Date / Time amoxicillin Allergy Rash/Hives Verified 06/09/21 16:52 codeine AdvReac Confusion Verified 06/09/21 16:52 Review of Systems ROS Statement: Those systems with pertinent positive or pertinent negative responses have been documented in the HPI. ROS Other: All systems not noted in ROS Statement are negative. Past Medical History Additional Past Medical History / Comment(s): Vertigo History of Any Multi-Drug Resistant Organisms: None Reported Past Surgical History: No Surgical Hx Reported Past Psychological History: No Psychological Hx Reported Smoking Status: Never smoker Past Alcohol Use History: Occasional Past Drug Use History: None Reported - Past Family History Father Family Medical History: Hyperlipidemia General Exam - General Exam Comments Initial Comments: GENERAL: Patient is well-developed and well-nourished. Patient is nontoxic and well- hydrated and is in mild distress. ENT: Neck is soft and supple. No significant lymphadenopathy is noted. Oropharynx is clear. Moist mucous membranes. Neck has full range of motion without eliciting any pain. EYES: The sclera were anicteric and conjunctiva were pink and moist. Extraocular movements were intact and pupils were equal round and reactive to light. Eyelids were unremarkable. PULMONARY: Unlabored respirations. Good breath sounds bilaterally. No audible rales rhonchi or wheezing was noted. CARDIOVASCULAR: There is a regular rate and rhythm without any murmurs gallops or rubs. ABDOMEN: Soft and nontender with normal bowel sounds. SKIN: Skin is clear with no lesions or rashes and otherwise unremarkable. NEUROLOGIC: Patient is alert and oriented x3. Cranial nerves II through XII are grossly intact. Motor and sensory are also intact. Normal speech, volume and content. Symmetrical smile. MUSCULOSKELETAL: Normal extremities with adequate strength and full range of motion. No lower extremity swelling or edema. No calf tenderness. LYMPHATICS: No significant lymphadenopathy is noted PSYCHIATRIC: Normal psychiatric evaluation. Limitations: no limitations Course Vital Signs 04/18/22 04/18/22 08:03 08:39 Temperature 98.8 F 98.8 F Pulse Rate 75 Pulse Rate [ 78 Right Radial] Respiratory 18 18 Rate Blood Pressure 101/58 Blood Pressure 100/51 [Right Arm Sitting] Blood Pressure 90/51 [Right Arm Standing] Blood Pressure 101/54 [Right Arm Supine] O2 Sat by Pulse 96 Oximetry Medical Decision Making - Medical Decision Making I interpret EKG EKG shows sinus rhythm at 81 bpm NC interval 152 QRS is 108 QT interval 382 QTC is 419. Patient's EKG shows no ST segment elevation or depression. I went back to reevaluate the patient and the patient felt much better she Was able to get up and ambulate without problem and had no complaints at this time. Patient stated she had no complaints of any dysuria hematuria cough sore throat or ear pain. I asked these questions because her white count was mildly elevated but she had no signs of any infection. - Lab Data Result diagrams: 04/18/22 08:54 04/18/22 08:54 Lab Results 04/18/22 04/18/22 Range/Units 08:54 08:54 WBC 17.4 H (3.8-10.6) k/uL RBC 4.02 (3.80-5.40) m/uL Hgb 12.5 (11.4-16.0) gm/dL Hct 35.4 (34.0-46.0) % MCV 88.1 (80.0-100.0) fL MCH 31.1 (25.0-35.0) pg MCHC 35.3 (31.0-37.0) g/dL RDW 12.8 (11.5-15.5) % Plt Count 269 (150-450) k/uL MPV 7.3 Neutrophils % 94 % Lymphocytes % 3 % Monocytes % 2 % Eosinophils % 1 % Basophils % 0 % Neutrophils # 16.4 H (1.3-7.7) k/uL Lymphocytes # 0.5 L (1.0-4.8) k/uL Monocytes # 0.3 (0-1.0) k/uL Eosinophils # 0.2 (0-0.7) k/uL Basophils # 0.0 (0-0.2) k/uL Sodium 139 (137-145) mmol/L Potassium 3.8 (3.5-5.1) mmol/L Chloride 111 H (98-107) mmol/L Carbon Dioxide 22 (22-30) mmol/L Anion Gap 6 mmol/L BUN 12 (7-17) mg/dL Creatinine 0.47 L (0.52-1.04) mg/dL Est GFR (CKD-EPI)AfAm >90 (>60 ml/min/1.73 sqM) Est GFR (CKD-EPI)NonAf >90 (>60 ml/min/1.73 sqM) Glucose 117 H (74-99) mg/dL Calcium 7.4 L (8.4-10.2) mg/dL Total Bilirubin 0.6 (0.2-1.3) mg/dL AST 30 (14-36) U/L ALT 16 (4-34) U/L Alkaline Phosphatase 55 (38-126) U/L Total Protein 6.4 (6.3-8.2) g/dL Albumin 3.5 (3.5-5.0) g/dL Amylase 60 (30-110) U/L Lipase 61 (23-300) U/L Disposition Clinical Impression: Vasovagal episode, Nausea & vomiting Disposition: HOME SELF-CARE Condition: Good Instructions (If sedation given, give patient instructions): Acute Nausea and Vomiting (ED), Hypotension (ED) Additional Instructions: Patient is given be given Zofran medications to go home with. Is patient prescribed a controlled substance at d/c from ED?: No Referrals: Maxx Srivastava MD [Primary Care Provider] - 1-2 days Time of Disposition: 10:30
[2022-04-18] MEDS ORDERED: ONDANSETRON 4 MG ODT STARTER PACK 2 TAB BTL PO STA (11:10)
== END 2022-04-18 11:22 | disposition home or self-care (01) ==
LOC: EC 08:02
DX: R55 Syncope and collapse (principal); R11.2 Nausea with vomiting, unspecified; Z88.1 Allergy status to other antibiotic agents; Z88.5 Allergy status to narcotic agent
CPT/HCPCS: 36415; 93005; 80053; 82150; 83690; 84484; 85025; 99284; 96374; 96361; J2405; S0119

== ENCOUNTER → 2022-05-17 | Outpatient (CLI) | payer BC ==
--- NOTE | 2022-05-17 11:46 | US ---
EXAMINATION TYPE: US carotid duplex BILAT DATE OF EXAM: 05/17/2022 COMPARISON: NONE CLINICAL HISTORY: R55 SYNCOPE AND COLLAPSE. TECHNIQUE: Carotid duplex ultrasound examination. Indirect Doppler criteria was utilized. FINDINGS: EXAM MEASUREMENTS: RIGHT: Peak Systolic Velocity (PSV) cm/sec ----- Right CCA: 106 ----- Right ICA: 106 ----- Right ECA: 93.4 ICA/CCA ratio: 1.0 RIGHT: End Diastole cm/sec ----- Right CCA: 27.9 ----- Right ICA: 30.9 ----- Right ECA: 19.5 LEFT: Peak Systolic Velocity (PSV) cm/sec ----- Left CCA: 100 ----- Left ICA: 102 ----- Left ECA: 78.1 ICA/CCA ratio: 1.0 LEFT: End Diastole cm/sec ----- Left CCA: 36.1 ----- Left ICA: 44.3 ----- Left ECA: 18.9 VERTEBRALS (direction of flow): Right Vertebral: Antegrade Left Vertebral: Antegrade [employer]OWS [employer] DEVELOPER NOTES: No significant stenosis seen IMPRESSION: Less than 50% stenosis of the bilateral carotid bifurcations. Criteria for Assigning % of Stenosis / Diameter reduction (Estimation based on the indirect measurements of the internal carotid artery velocities (ICA PSV). 1. Normal (no stenosis)=ICA PSV < 125 cm/s: ratio < 2.0: ICA EDV<40 cm/s. 2. Less than 50% stenosis=ICA PSV < 125 cm/s: ratio < 2.0: ICA EDV<40 cm/s. 3. 50 to 69% stenosis=ICA PSV of 125 to 230 cm/s: ration 2.0 ? 4.0: ICA EDV 40-100 cm/s. 4. Greater than 70% stenosis to near occlusion= ICA PSV > 230 cm/s: ratio > 4.0: ICA EDV > 100 cm/s. 5. Near occlusion= ICA PSV velocities may be low or undetectable: variable ratio and ICA EDV. 6. Total occlusion=unable to detect flow.
== END | disposition home or self-care (01) ==
LOC: RADUSWWP 10:46
PROVIDERS: ATTEND Family Medicine
DX: I65.23 Occlusion and stenosis of bilateral carotid arteries (principal)
CPT/HCPCS: 93880

== ENCOUNTER → 2022-06-20 | Outpatient (CLI) | payer BC ==
--- NOTE | 2022-06-20 14:14 | BD ---
EXAMINATION TYPE: Axial Bone Density DATE OF EXAM: 06/20/2022 COMPARISON: NONE CLINICAL HISTORY: 61 years old Female. ICD-10 CODE: Z78.[address] Height: 64 Weight: 162 FRAX RISK QUESTIONS: Family History (Parent hip fracture): YES MOTHER 93 History of Fracture in Adulthood: NO Secondary Osteoporosis: NO Rheumatoid Arthritis: NO RISK FACTORS HISTORY OF: Family History of Osteoporosis: NO Active: YES Diet low in dairy products/other sources of calcium: NO Postmenopausal woman: YES Lost more than 2 inches in height since high school: NO Frequent falls: NO Poor Health: NO MEDICATIONS: Additional Medications: YES VERTIGO MEDS PRN EXAM MEASUREMENTS: Bone mineral densitometry was performed using the [employer] System. Bone mineral density as measured about the Lumbar spine is: ----- L1-L4(G/cm2): 0.955 T Score Values are as follows: ----- L1: -1.8 ----- L2: -1.9 ----- L3: -1.8 ----- L4: -2.1 ----- L1-L4: -1.9 Bone mineral density BASELINE Bone mineral density about the R hip (g/cm2): 0.899 Bone mineral density about the L hip (g/cm2): 0.866 T Score values are as follows: -----R Neck: -1.1 -----L Neck: -0.9 -----R Total: -0.9 -----L Total: -1.1 Bone mineral BASELINE FRAX%s: The graph provided illustrates a 7.0% chance for a major osteoporotic fx and a 0.4% chance fo r the hips probability for fx in 10 years time. IMPRESSION: Osteopenia (T Score between -2.5 and -1). There is slightly increased risk of fracture and the patient may be considered for treatment. Re-Screen 2-5 years. NOTE: T-SCORE=SD OF THE YOUNG ADULT MEAN.
--- NOTE | 2022-06-21 08:38 | MM ---
Reason for Exam: Screening (asymptomatic). Last screening mammogram was performed 12 month(s) ago. Patient History: Menarche at age 18. First Full-Term at age 32. Late child-bearing (after 30). Postmenopausal. Hormonal Contraceptives, from age 43 until age 52. Core Biopsy on the Right side. 09/03/1998, Benign Stereotactic Core Biopsy on the right side. Risk Values: Ailyn 5 year model risk: 2.6%. NCI Lifetime model risk: 13.7%. Prior Study Comparison: 05/08/2019 Bilateral Screening Mammogram, [facility]. 05/19/2020 Bilateral Screening Mammogram, [facility]. 06/17/2021 Bilateral Screening Mammogram, [facility]. Tissue Density: The breast tissue is heterogeneously dense. This may lower the sensitivity of mammography. Findings: Analyzed By CAD. There is no suspicious group of microcalcifications or new suspicious mass in either breast. Overall Assessment: Benign, BI-RAD 2 Management: Screening Mammogram of both breasts in 1 year. A clinical breast exam by your physician is recommended on an annual basis and results should be correlated with mammographic findings. Electronically signed and approved by: Tommy Finn M.D. Radiologis
== END | disposition home or self-care (01) ==
LOC: RADMAMWWP 12:25
PROVIDERS: ATTEND Obstetrics & Gynecology
DX: Z12.31 Encounter for screening mammogram for malignant neoplasm of breast (principal); M85.89 Other specified disorders of bone density and structure, multiple sites; Z78.0 Asymptomatic menopausal state
CPT/HCPCS: 77063; 77067; 77080

== ENCOUNTER → 2023-06-22 | Outpatient (CLI) | payer BC ==
--- NOTE | 2023-06-25 09:51 | MM ---
Reason for Exam: Screening (asymptomatic). Last mammogram was performed 1 year(s) and 1 month(s) ago. Patient History: Menarche at age 18. First Full-Term at age 32. Late child-bearing (after 30). Postmenopausal. Patient has history of breast feeding. Hormonal Contraceptives, from age 43 until age 52. Core Biopsy on the Right side. 09/03/1998, Benign Stereotactic Core Biopsy on the right side. Risk Values: Ailyn 5 year model risk: 2.7%. NCI Lifetime model risk: 13.4%. Prior Study Comparison: 04/16/2017 Bilateral Screening Mammogram, [facility]. 05/07/2018 Bilateral Screening Mammogram, [facility]. 05/08/2019 Bilateral Screening Mammogram, [facility]. 05/19/2020 Bilateral Screening Mammogram, [facility]. 06/17/2021 Bilateral Screening Mammogram, [facility]. 06/20/2022 Bilateral MG 3D screening mammo w/cad, [facility]. Tissue Density: The breast tissue is heterogeneously dense. This may lower the sensitivity of mammography. Findings: Analyzed By CAD. There is no suspicious group of microcalcifications or new suspicious mass in either breast. A surgical clip in the right breast. Overall Assessment: Benign, BI-RAD 2 Management: Screening Mammogram of both breasts in 1 year. . Patient should continue monthly self-breast exams. A clinical breast exam by your physician is recommended on an annual basis. This exam should not preclude additional follow-up of suspicious palpable abnormalities. Note on Ailyn scores and lifetime risk: 1. A Ailyn score greater than 3% is considered moderate risk. If this is the case, consider specialist referral to assess eligibility for a risk reducing agent. 2. If overall lifetime risk for the development of breast cancer is 20% or higher, the patient may qualify for future screening with alternating mammogram and breast MRI. Electronically signed and approved by: Maxx Monroe M.D. Radiologis
== END | disposition home or self-care (01) ==
LOC: RADMAMWWP 12:50
PROVIDERS: ATTEND Obstetrics & Gynecology
DX: Z12.31 Encounter for screening mammogram for malignant neoplasm of breast (principal); Z78.0 Asymptomatic menopausal state
CPT/HCPCS: 77063; 77067

== ENCOUNTER → 2024-06-23 | Outpatient (CLI) | payer BC ==
--- NOTE | 2024-06-23 13:18 | MM ---
Reason for Exam: Screening (asymptomatic). Last screening mammogram was performed 12 month(s) ago. Patient History: Menarche at age 18. First Full-Term at age 32. Late child-bearing (after 32). Postmenopausal. Patient has history of breast feeding. Hormonal Contraceptives, from age 43 until age 52. Core Biopsy on the Right side. 09/03/1998, Benign Stereotactic Core Biopsy on the right side. Risk Values: Ailyn 5 year model risk: 2.8%. NCI Lifetime model risk: 13.0%. Prior Study Comparison: 06/17/2021 Bilateral Screening Mammogram, [facility]ED WITH [facility]. 06/20/2022 Bilateral MG 3D screening mammo w/cad, [facility]. 06/22/2023 Bilateral MG 3D screening mammo w/cad, [facility]GED WITH [facility]. Tissue Density: There are scattered areas of fibroglandular density. Findings: Analyzed By CAD. Mammotome biopsy clip in the right breast is redemonstrated. There is no suspicious new group of microcalcifications or new suspicious mass in either breast. Overall Assessment: Benign, BI-RAD 2 Management: Screening Mammogram of both breasts in 1 year. . Patient should continue monthly self-breast exams. A clinical breast exam by your physician is recommended on an annual basis. This exam should not preclude additional follow-up of suspicious palpable abnormalities. Note on Ailyn scores and lifetime risk: 1. A Ailyn score greater than 3% is considered moderate risk. If this is the case, consider specialist referral to assess eligibility for a risk reducing agent. 2. If overall lifetime risk for the development of breast cancer is 20% or higher, the patient may qualify for future screening with alternating mammogram and breast MRI. [facility], , 06/23/2024 1:15 PM. Electronically signed and approved by: Bertrand Villa M.D.
== END | disposition home or self-care (01) ==
LOC: RADMAMWWP 11:28
PROVIDERS: ATTEND Obstetrics & Gynecology
DX: Z12.31 Encounter for screening mammogram for malignant neoplasm of breast (principal); R92.323 Mammographic fibroglandular density, bilateral breasts; Z78.0 Asymptomatic menopausal state
CPT/HCPCS: 77063; 77067